=== PATIENT | female | born 1990 | race Caucasian/White ===

== ENCOUNTER → 2017-09-12 | Outpatient (CLI) | payer OTHER | LOC: FIMAGING 09:04 | PROVIDERS: ATTEND Internal Medicine | DX: N64.4 Mastodynia (principal) ==

== ENCOUNTER → 2017-12-04 | Outpatient (CLI) | payer OTHER | LOC: FIMAGING 15:19 | PROVIDERS: ATTEND Obstetrics & Gynecology | DX: E28.2 Polycystic ovarian syndrome (principal) ==

== ENCOUNTER 2018-01-19 05:58 | Emergency (ER) | payer OTHER ==
--- NOTE | 2018-01-19 06:28 | EDPHY ---
H & P Stated Complaint: bleeding [address] bustillos Time Seen by Provider: 01/19/18 06:12 HPI/ROS: HPI The patient presents with vaginal bleeding for the last 12 hr. She is 8 weeks by LMP of November 18. She is followed by Dr. Cannon and has had a a normal ultrasound during this . She had intercourse with her boyfriend about 2 hr prior to the bleeding starting. When she stood up yesterday she noticed a do of blood. This lasted for a few minutes. She called her OBGYN traditional chinese herbalist and was instructed to monitor her bleeding at home. She did not use more than 1 pad per hour. However, this morning, the bleeding continued and is now described as a spotting. Because of this she decided to come to the emergency department. She does not have any abdominal pain or cramping. REVIEW OF SYSTEMS Constitutional: No fever, no chills. Eyes: No discharge. ENT: No sore throat. Cardiovascular: No chest pain, no palpitations. Respiratory: No cough, no shortness of breath. Gastrointestinal: No abdominal pain, no vomiting. Genitourinary: No hematuria. Musculoskeletal: No back pain. Skin: No rashes. Neurological: No headache. PMHx: Currently 1st trimester Soc Hx: Here with her boyfriend PHYSICAL General Appearance: Alert, no distress Eyes: Pupils equal and round no pallor or injection ENT, Mouth: Mucous membranes moist Respiratory: There are no retractions, lungs are clear to auscultation Cardiovascular: Regular rate and rhythm Gastrointestinal: Abdomen is soft and non-tender, no masses, bowel sounds normal Neurological: A&O, moves all extremities Skin: Warm and dry, no rashes Musculoskeletal: Neck is supple non tender Extremities: symmetrical, full range of motion Psychiatric: Patient is oriented X 3, there is no agitation Source: Patient Exam Limitations: No limitations - Personal History LMP (Females 10-55): Current Tetanus/Diphtheria Vaccine: Unsure Current Tetanus Diphtheria and Acellular Pertussis (TDAP): Unsure - Medical/Surgical History Hx Asthma: No Hx Chronic Respiratory Disease: No Hx Diabetes: No Hx Cardiac Disease: No Hx Renal Disease: No Hx Cirrhosis: No Hx Alcoholism: No Hx HIV/AIDS: No Hx Splenectomy or Spleen Trauma: No - Social History Smoking Status: Never smoked Constitutional: Initial Vital Signs Temperature (C) 36.8 C 01/19/18 06:01 Heart Rate 91 01/19/18 06:01 Respiratory Rate 16 01/19/18 06:01 Blood Pressure 108/62 01/19/18 06:01 O2 Sat (%) 99 01/19/18 06:01 O2 Delivery Mode Room Air Allergies/Adverse Reactions: No Known Allergies Allergy (Unverified 01/19/18 06:02) Medical Decision Making Procedures: Bedside limited obstetric Ultrasound- performed and interpreted by me. Indication: Vaginal bleeding in Findings: Live IUP with normal heart tones, measuring 7 weeks and 6 days by crown-rump length, there is a small left-sided subchorionic hemorrhage Impression: Normal IUP Differential Diagnosis: 27-year-old female, currently estimated gestational age of 8 weeks by LMP of November 18 presents with 12 hr of intermittent vaginal bleeding, progressively improving over the course of the night. This is not associated with any pain. On arrival, she is hemodynamically stable, she has no ongoing bleeding, abdominal exam is benign. Bedside ultrasound performed by me demonstrates 8 week IUP with normal heart tones. I suspect there is a small right-sided subchorionic hemorrhage which could be the cause of her bleeding. Labs were checked revealing normal hemoglobin. HCG was appropriate for dates. Rh is positive, thus she does not need RhoGAM. I discussed ultrasound results with her and She can follow up with her primary OB and I have discussed return precautions to the emergency department. - Data Points Laboratory Results: Laboratory Results 01/19/18 06:24 01/19/18 01/19/18 01/19/18 06:24 06:24 06:24 WBC 5.59 10^3/uL 10^3/uL (3.80-9.50) RBC 4.75 10^6/uL 10^6/uL (4.18-5.33) Hgb 14.7 g/dL g/dL (12.6-16.3) Hct 42.5 % % (38.0-47.0) MCV 89.5 fL fL (81.5-99.8) MCH 30.9 pg pg (27.9-34.1) MCHC 34.6 g/dL g/dL (32.4-36.7) RDW 11.9 % % (11.5-15.2) Plt Count 219 10^3/uL 10^3/uL (150-400) MPV 9.1 fL fL (8.7-11.7) Neut % (Auto) 69.6 % % (39.3-74.2) Lymph % (Auto) 20.9 % % (15.0-45.0) [place] % (Auto) 6.3 % % (4.5-13.0) Eos % (Auto) 2.1 % % (0.6-7.6) Baso % (Auto) 0.7 % % (0.3-1.7) Nucleat RBC Rel Count 0.0 % % (0.0-0.2) Absolute Neuts (auto) 3.89 10^3/uL 10^3/uL (1.70-6.50) Absolute Lymphs (auto) 1.17 10^3/uL 10^3/uL (1.00-3.00) Absolute Monos (auto) 0.35 10^3/uL 10^3/uL (0.30-0.80) Absolute Eos (auto) 0.12 10^3/uL 10^3/uL (0.03-0.40) Absolute Basos (auto) 0.04 10^3/uL 10^3/uL (0.02-0.10) Absolute Nucleated RBC 0.00 10^3/uL 10^3/uL (0-0.01) Immature Gran % 0.4 % % (0.0-1.1) Immature Gran # 0.02 10^3/uL 10^3/uL (0.00-0.10) Beta HCG, Quant Pending Patient ABO/Rh A POSITIVE Departure - Departure Disposition: Home, Routine, Self-Care Clinical Impression: Vaginal bleeding affecting early Condition: Good Instructions: Threatened Miscarriage (ED) Additional Instructions: Please return to the emergency department if you're bleeding more than 1 pad per hour. Otherwise, I would like for you to follow up with your OBGYN today via telephone. Referrals: Bryant Callejas MD [Primary Care Provider] - As per Instructions Archana Bustillos MD [Medical Doctor] - As per Instructions
[2018-01-19 06:37] LABS: PLATELET COUNT 219 10^3/uL (150-400)
[2018-01-19 07:39] VITALS: BP 105/64
== END 2018-01-19 07:39 | disposition home or self-care (01) ==
DX: O20.8 Other hemorrhage in early pregnancy (principal); Z3A.08 8 weeks gestation of pregnancy

== ENCOUNTER → 2018-12-22 | Outpatient (CLI) | payer OTHER | LOC: FIMAGING 11:42 | PROVIDERS: ATTEND Registered Nurse | DX: Z30.431 Encounter for routine checking of intrauterine contraceptive device (principal) ==